=== PATIENT | female | born 1935 | race Caucasian/White ===

== ENCOUNTER 2024-10-18 15:34 | Inpatient (IN) ==
[2024-10-18] MEDS: ACETAMINOPHEN 1,000 MG/100 ML BAG IV ONE (16:08)
[2024-10-18 17:36] LABS: Basophils # (Auto) 0.04 K/mcL (0.00-0.30); Basophils % (Auto) 0.6 % (0.0-2.0); Eosinophils # (Auto) 0.34 K/mcL (0.00-0.70); Eosinophils % (Auto) 5.1 % (0.0-7.0); Hematocrit 39.2 % (34.1-44.9); Hemoglobin 12.4 g/dL (11.2-15.7); Lymphocytes # (Auto) 1.42 K/mcL (1.50-4.80); Lymphocytes % (Auto) 21.2 % (15.5-49.0); Mean Cell Volume 99.5 fL (80.0-100.0); Mean Corpuscular HGB Conc 31.6 g/dL (31.0-36.0); Monocytes # (Auto) 0.97 K/mcL (0.10-0.90); Monocytes % (Auto) 14.5 % (1.0-12.0); Neutrophils % (Auto) 58.2 % (38.0-78.0); Platelet Count 230 K/mcL (140-440); RBC 3.94 M/mcL (3.59-5.38); Red Cell Distribution Width 13.3 % (11.5-14.5); WBC 6.7 K/mcL (4.5-11.0)
[2024-10-18 17:46] LABS: ALT/SGPT 16 U/L (<40); AST/SGOT 19 U/L (<32); Albumin 3.8 gm/dL (3.2-5.2); Albumin/Globulin Ratio 1.1 (1.0-2.3); Alkaline Phosphatase 147 U/L (39-117); Bilirubin,Total 0.2 mg/dL (0.1-1.0); Blood Urea Nitrogen 25 mg/dL (8-23); Carbon Dioxide 24 mmol/L (22-30); Chloride 103 mmol/L (96-108); Globulin 3.5 gm/dL (2.2-3.7); Glomerular Filtration Rate 44; Glucose 159 mg/dL (70-105); Potassium 4.1 mmol/L (3.3-5.1); Sodium 140 mmol/L (133-145)
[2024-10-18 17:58] LABS: INR 0.9 (0.9-1.1); Prothrombin Time 12.8 sec (11.9-14.5)
[2024-10-18 19:59] LABS: Appearance,Urine Clear (Clear); Bacteria,Urine Rare /hpf (0); Bilirubin,Urine Negative (Negative); Color,Urine Yellow; Glucose,Urine (UA) Negative (Negative); Ketones,Urine Negative (Negative); Leukocyte Esterase,Urine Negative /uL (Negative); Nitrate,Urine Negative (Negative); PH,Urine 5.5 (5.0-9.0); Protein,Urine Negative (Negative); Specific Gravity,Urine >= 1.030 (1.000-1.035); Urine Blood Negative ery/mcL (Negative); Urine Hyaline Cast 23 /lph (0-2); Urine RBC 1 /hpf (0-3); Urine Squamous Epithelial Cell 1 /hpf (0-4); Urine WBC 2 /hpf (0-4); Urobilinogen,Urine Normal
[2024-10-18] MEDS ORDERED: ONDANSETRON 4 MG/2 ML VIAL IV PRN (20:41)
[2024-10-18] MEDS: morphine 4 MG/ML VIAL IV PRN (20:48)
[2024-10-18] MEDS: LACTATED RINGERS 1,000 ML IV SCH ×2 (20:49→22:54)
[2024-10-18] MEDS: 0.9 % SODIUM CHLORIDE 10 ML SYRINGE IV SCH (21:12)
[2024-10-18] MEDS: morphine 4 MG/ML VIAL ONE (21:12)
[2024-10-18] MEDS: MELATONIN 3 MG TABLET PO SCH (21:58)
[2024-10-18] MEDS: QUEtiapine 25 MG TABLET PO SCH (21:58)
[2024-10-18] MEDS: OLANZapine 2.5 MG TABLET PO SCH (21:59)
[2024-10-18] MEDS: HYDROcodone/APAP 5/325MG TABLET PO PRN (22:01)
[2024-10-19] MEDS: cefTRIAXone 1 GM VIAL IV SCH (00:57)
[2024-10-19] MEDS: cefTRIAXone 1 GM VIAL ONE (00:57)
[2024-10-19 06:41] LABS: Basophils # (Auto) 0.03 K/mcL (0.00-0.30); Basophils % (Auto) 0.4 % (0.0-2.0); Eosinophils # (Auto) 0.22 K/mcL (0.00-0.70); Eosinophils % (Auto) 2.9 % (0.0-7.0); Hematocrit 32.9 % (34.1-44.9); Hemoglobin 10.4 g/dL (11.2-15.7); Lymphocytes # (Auto) 1.05 K/mcL (1.50-4.80); Mean Corpuscular HGB Conc 31.6 g/dL (31.0-36.0); Mean Platelet Volume 11.5 fL (8.8-12.5); Neutrophils % (Auto) 66.4 % (38.0-78.0); Platelet Count 201 K/mcL (140-440); RBC 3.29 M/mcL (3.59-5.38); Red Cell Distribution Width 13.3 % (11.5-14.5); WBC 7.5 K/mcL (4.5-11.0)
[2024-10-19 07:32] LABS: ALT/SGPT 15 U/L (<40); AST/SGOT 18 U/L (<32); Albumin 3.3 gm/dL (3.2-5.2); Albumin/Globulin Ratio 1.2 (1.0-2.3); Alkaline Phosphatase 126 U/L (39-117); Bilirubin,Total 0.3 mg/dL (0.1-1.0); Blood Urea Nitrogen 21 mg/dL (8-23); Calcium 8.5 mg/dL (8.6-10.4); Carbon Dioxide 25 mmol/L (22-30); Chloride 104 mmol/L (96-108); Globulin 2.7 gm/dL (2.2-3.7); Glomerular Filtration Rate 81; Glucose 129 mg/dL (70-105); Potassium 4.2 mmol/L (3.3-5.1); Sodium 139 mmol/L (133-145)
[2024-10-19] MEDS: ACETAMINOPHEN 1,000 MG/100 ML BAG IV PRN (08:34)
[2024-10-19] MEDS: SENNOSIDES 1 TABLET PO SCH ×2 (08:37→21:01)
[2024-10-19] MEDS ORDERED: PROPOFOL 200 MG/20 ML VIAL IV ONE (14:21)
[2024-10-19] MEDS ORDERED: fentaNYL 100 MCG/2 ML VIAL ONE (14:21)
[2024-10-19] MEDS ORDERED: DEXAMETHASONE 10 MG/ML VIAL ONE (14:21)
[2024-10-19] MEDS ORDERED: ONDANSETRON 4 MG/2 ML VIAL ONE (14:21)
[2024-10-19] MEDS ORDERED: LIDOCAINE 2% PF 5 ML VIAL ONE (14:21)
[2024-10-19] MEDS ORDERED: FAMOTIDINE/PF 20 MG/2 ML VIAL IV ONE (14:21)
[2024-10-19] MEDS ORDERED: GLYCOPYRROLATE 0.2 MG/ML VIAL IV ONE (14:21)
[2024-10-19] MEDS ORDERED: TRANEXAMIC ACID 1,000 MG/10 ML VIAL ONE (14:21)
[2024-10-19] MEDS ORDERED: KETAMINE 50 MG/ML ML ONE (14:22)
[2024-10-19] MEDS: VANCOMYCIN PER PHARMACY IV SCH (16:00)
[2024-10-19] MEDS: VANCOMYCIN 1,500 MG in 0.9 % SODIUM CHLORIDE 500 ML IV SCH (16:07)
[2024-10-19] MEDS ORDERED: CARBOXYMETHYLCELLULOSE SODIUM 1 EACH DROPER.GEL ONE (16:22)
[2024-10-19] MEDS ORDERED: BENZOCAINE/MENTHOL 1 LOZENGE PO PRN ×2 (17:05→17:09)
[2024-10-19] MEDS ORDERED: HYDROmorphone 0.5 MG/0.5 ML SYRINGE IV PRN (17:05)
[2024-10-19] MEDS ORDERED: NALOXONE HCL 0.4 MG/ML VIAL IV PRN (17:05)
[2024-10-19] MEDS ORDERED: ONDANSETRON 4 MG/2 ML VIAL IV PRN (17:05)
[2024-10-19] MEDS ORDERED: METHOCARBAMOL 1,000 MG/10 ML VIAL IV PRN (17:05)
[2024-10-19] MEDS ORDERED: IPRATROPIUM/ALBUTEROL 3 ML AMPUL.NEB NEB PRN (17:05)
[2024-10-19] MEDS ORDERED: LACTATED RINGERS 250 ML IV PRN (17:05)
[2024-10-19] MEDS ORDERED: MAGNESIUM HYDROXIDE 30 ML ORAL.SUSP PO PRN (17:09)
[2024-10-19] MEDS ORDERED: POLYETHYLENE GLYCOL 3350 17 GM PACKET PO PRN (17:09)
[2024-10-19] MEDS ORDERED: HYDROcodone/APAP 5/325MG TABLET PO PRN (17:09)
[2024-10-19] MEDS ORDERED: ONDANSETRON 4 MG ODT TABLET SL PRN (17:09)
[2024-10-19] MEDS ORDERED: BISACODYL 10 MG SUPP.RECT PR PRN (17:09)
[2024-10-19] MEDS ORDERED: morphine 4 MG/ML VIAL IV PRN (17:09)
[2024-10-19] MEDS ORDERED: FLEETS ADULT 1 DOSE ENEMA PR PRN (17:09)
[2024-10-19] MEDS: fentaNYL 100 MCG/2 ML VIAL IV PRN (17:57)
[2024-10-19] MEDS: LACTATED RINGERS 1,000 ML IV SCH (19:12)
[2024-10-19] MEDS: ceFAZolin 2 GM in DEXTROSE 5% IN WATER 50 ML IV SCH (19:59)
[2024-10-19] MEDS: DOCUSATE SODIUM 100 MG CAPSULE PO SCH (21:00)
[2024-10-19] MEDS ORDERED: ASPIRIN 325 MG ENTERIC COATED TABLET PO SCH (21:00)
[2024-10-19] MEDS: POLYETHYLENE GLYCOL 3350 17 GM PACKET PO SCH (21:00)
[2024-10-19] MEDS: CARVEDILOL 6.25 MG TABLET PO SCH (21:01)
[2024-10-19] MEDS: METHOCARBAMOL 750 MG TABLET PO PRN (21:01)
[2024-10-19] MEDS: MUPIROCIN OINT 2% 22GM NARES SCH (21:17)
[2024-10-19] MEDS: ENOXAPARIN 40 MG/0.4 ML SYRINGE SQ SCH (21:18)
[2024-10-19] MEDS: 0.9 % SODIUM CHLORIDE 1,000 ML IV SCH (21:18)
[2024-10-20 06:22] LABS: Basophils # (Auto) 0.01 K/mcL (0.00-0.30); Basophils % (Auto) 0.1 % (0.0-2.0); Eosinophils # (Auto) 0 K/mcL (0.00-0.70); Eosinophils % (Auto) 0 % (0.0-7.0); Hematocrit 33.3 % (34.1-44.9); Hemoglobin 10.1 g/dL (11.2-15.7); Lymphocytes # (Auto) 0.49 K/mcL (1.50-4.80); Lymphocytes % (Auto) 5.2 % (15.5-49.0); Mean Cell Volume 105.7 fL (80.0-100.0); Mean Corpuscular HGB Conc 30.3 g/dL (31.0-36.0); Mean Platelet Volume 10.9 fL (8.8-12.5); Monocytes # (Auto) 0.75 K/mcL (0.10-0.90); Monocytes % (Auto) 7.9 % (1.0-12.0); Neutrophils % (Auto) 86.5 % (38.0-78.0); Platelet Count 171 K/mcL (140-440); RBC 3.15 M/mcL (3.59-5.38); WBC 9.4 K/mcL (4.5-11.0)
[2024-10-20 07:05] LABS: ALT/SGPT 15 U/L (<40); AST/SGOT 21 U/L (<32); Albumin 3.2 gm/dL (3.2-5.2); Albumin/Globulin Ratio 1.1 (1.0-2.3); Alkaline Phosphatase 124 U/L (39-117); Bilirubin,Total 0.3 mg/dL (0.1-1.0); Blood Urea Nitrogen 12 mg/dL (8-23); Calcium 8.5 mg/dL (8.6-10.4); Carbon Dioxide 25 mmol/L (22-30); Chloride 105 mmol/L (96-108); Glomerular Filtration Rate 86; Glucose 179 mg/dL (70-105); Potassium 4.3 mmol/L (3.3-5.1); Sodium 140 mmol/L (133-145)
[2024-10-20] MEDS: LEVOTHYROXINE 88 MCG TABLET PO SCH (08:59)
[2024-10-20] MEDS: amLODIPine 5 MG TABLET PO SCH (08:59)
[2024-10-20] MEDS: 0.9 % SODIUM CHLORIDE 1,000 ML IV SCH (13:15)
[2024-10-21 06:16] LABS: Basophils # (Auto) 0.03 K/mcL (0.00-0.30); Basophils % (Auto) 0.3 % (0.0-2.0); Eosinophils # (Auto) 0.19 K/mcL (0.00-0.70); Hematocrit 27.6 % (34.1-44.9); Hemoglobin 8.4 g/dL (11.2-15.7); Lymphocytes # (Auto) 1.25 K/mcL (1.50-4.80); Lymphocytes % (Auto) 13.1 % (15.5-49.0); Mean Cell Volume 104.2 fL (80.0-100.0); Mean Corpuscular HGB Conc 30.4 g/dL (31.0-36.0); Mean Platelet Volume 11.3 fL (8.8-12.5); Monocytes # (Auto) 1.22 K/mcL (0.10-0.90); Monocytes % (Auto) 12.8 % (1.0-12.0); Neutrophils % (Auto) 71.5 % (38.0-78.0); Platelet Count 170 K/mcL (140-440); RBC 2.65 M/mcL (3.59-5.38); Red Cell Distribution Width 13.1 % (11.5-14.5); WBC 9.5 K/mcL (4.5-11.0)
[2024-10-21 06:59] LABS: ALT/SGPT 14 U/L (<40); AST/SGOT 22 U/L (<32); Albumin/Globulin Ratio 1.2 (1.0-2.3); Alkaline Phosphatase 100 U/L (39-117); Bilirubin,Total 0.3 mg/dL (0.1-1.0); Blood Urea Nitrogen 21 mg/dL (8-23); Calcium 8.2 mg/dL (8.6-10.4); Carbon Dioxide 23 mmol/L (22-30); Chloride 107 mmol/L (96-108); Globulin 2.6 gm/dL (2.2-3.7); Glomerular Filtration Rate 86; Glucose 120 mg/dL (70-105); Potassium 3.7 mmol/L (3.3-5.1); Sodium 140 mmol/L (133-145)
[2024-10-21] MEDS: POTASSIUM PHOSPHATE 20 MEQ in DEXTROSE 5% IN WATER 250 ML IV ONE (09:04)
[2024-10-21 17:03] LABS: Hematocrit 26.9 % (34.1-44.9); Hemoglobin 8.4 g/dL (11.2-15.7)
[2024-10-21 17:20] LABS: Phosphorous 2.5 mg/dL (2.5-4.5)
[2024-10-21] MEDS: ACETAMINOPHEN 325 MG TABLET PO PRN (20:32)
[2024-10-22 04:31] VITALS: O2SAT 89
[2024-10-22 06:26] LABS: Basophils # (Auto) 0.03 K/mcL (0.00-0.30); Basophils % (Auto) 0.3 % (0.0-2.0); Eosinophils # (Auto) 0.04 K/mcL (0.00-0.70); Eosinophils % (Auto) 0.5 % (0.0-7.0); Hematocrit 27.4 % (34.1-44.9); Hemoglobin 8.6 g/dL (11.2-15.7); Lymphocytes # (Auto) 0.77 K/mcL (1.50-4.80); Lymphocytes % (Auto) 8.7 % (15.5-49.0); Mean Cell Volume 101.9 fL (80.0-100.0); Mean Corpuscular HGB Conc 31.4 g/dL (31.0-36.0); Mean Platelet Volume 11.1 fL (8.8-12.5); Monocytes # (Auto) 0.89 K/mcL (0.10-0.90); Platelet Count 199 K/mcL (140-440); RBC 2.69 M/mcL (3.59-5.38); Red Cell Distribution Width 13.2 % (11.5-14.5); WBC 8.9 K/mcL (4.5-11.0)
[2024-10-22 07:02] LABS: Phosphorous 2.8 mg/dL (2.5-4.5)
[2024-10-22 07:07] LABS: ALT/SGPT 24 U/L (<40); AST/SGOT 36 U/L (<32); Albumin 3.2 gm/dL (3.2-5.2); Albumin/Globulin Ratio 1.2 (1.0-2.3); Alkaline Phosphatase 105 U/L (39-117); Bilirubin,Total 0.4 mg/dL (0.1-1.0); Blood Urea Nitrogen 27 mg/dL (8-23); Calcium 8.2 mg/dL (8.6-10.4); Carbon Dioxide 23 mmol/L (22-30); Chloride 106 mmol/L (96-108); Globulin 2.7 gm/dL (2.2-3.7); Glomerular Filtration Rate 81; Glucose 137 mg/dL (70-105); Potassium 3.8 mmol/L (3.3-5.1); Sodium 140 mmol/L (133-145)
[2024-10-22 11:38] VITALS: TEMP 97.6
== END 2024-10-22 12:28 | DRG 481 ==
LOC: ED 15:34 → MEDSUR 20:38
PROVIDERS: ADMIT Student in an Organized Health Care Education/Training Program; ATTEND Student in an Organized Health Care Education/Training Program